=== PATIENT | female | born 1940 | race Two or more races ===

== ENCOUNTER 2023-07-17 18:29 | Emergency (ER) | payer OTHER ==
[~2023-07-17] VITALS: Ht 160 cm; Wt 104.3 kg
[2023-07-17] MEDS ORDERED: CRESTOR40 MG (18:43)
[2023-07-17] MEDS ORDERED: CYCLOBENZAPRINE10 MG (18:43)
[2023-07-17] MEDS ORDERED: MELOXICAM7.5 MG (18:43)
[2023-07-17] MEDS ORDERED: OLMESARTAN-HCT1 EAC1 (18:44)
[2023-07-17] MEDS ORDERED: TRADJENTA5 MG (18:44)
[2023-07-17] MEDS ORDERED: NEURONTIN300 MG (18:44)
[2023-07-17] MEDS ORDERED: ALLOPURINOL300 MG (18:44)
[2023-07-17] MEDS ORDERED: OSTERA TABLET1 EACH (18:45)
[2023-07-17] MEDS ORDERED: ADULT LOW DOSE81 M1 (18:45)
[2023-07-17] MEDS ORDERED: AMLODIPINE-OLM1 EAC2 (18:45)
[2023-07-17] MEDS ORDERED: GABAPENTIN100 MG PO (20:10)
[2023-07-17] MEDS ORDERED: NORFLEX100MG PO (20:10)
[2023-07-17] MEDS ORDERED: DICLOFENAC POTA50 MG PO (20:10)
[2023-07-17] MEDS ORDERED: MEDROLPACK PO (20:10)
== END 2023-07-17 20:17 | disposition home or self-care (01) ==
LOC: ER 18:29
DX: M54.9 Dorsalgia, unspecified (principal); I10 Essential (primary) hypertension; E11.9 Type 2 diabetes mellitus without complications; Z88.5 Allergy status to narcotic agent
CPT/HCPCS: 96372; 99282; J1100; J1885; J2360